=== PATIENT | male | born 1960 | race Asian ===

== ENCOUNTER 2025-01-13 06:17 | Day surgery (SDC) | payer OTHER, SELFPAY | END 2025-01-13 13:05 | disposition home or self-care (01) | LOC: GI 06:17 | PROVIDERS: ATTENDING PHYSICIAN Specialist | DX: R12 Heartburn (principal); K31.7 Polyp of stomach and duodenum; K22.89 Other specified disease of esophagus; K31.89 Other diseases of stomach and duodenum; K20.0 Eosinophilic esophagitis; Z98.0 Intestinal bypass and anastomosis status | CPT/HCPCS: 43239; 88305; 88342 ==